=== PATIENT | female | born 1990 | race Caucasian/White ===

== ENCOUNTER 2017-02-16 17:11 | Emergency (ER) | payer BC ==
[~2017-02-16] VITALS: Ht 160 cm; Wt 86.4 kg
[2017-02-16 17:18] VITALS: BP 120/68; PULSE 88; TEMP 98.4
[2017-02-16] MEDS ORDERED: LEXAPRO20 MG PO (17:21)
[2017-02-16] MEDS ORDERED: AMOXICILLIN 50500 MG PO (18:08)
== END 2017-02-16 18:00 | disposition home or self-care (01) ==
LOC: COL.ER 17:11
DX: J03.90 Acute tonsillitis, unspecified (principal)